=== PATIENT | male | born 1965 | race Caucasian/White ===

== ENCOUNTER 2021-04-09 08:34 | Outpatient (REF) | payer OTHER, SELFPAY ==
--- NOTE | 2021-04-09 09:57 | MHC.AU.ANR ---
Adult Audiological Evaluation Date of Visit: 04/09/21 Reason for Appointment: Audiological evaluation due to concerns for decreased hearing and tinnitus. Mr. Razo notes that over the past few years he's been having to ask people to repeat themselves more often and he has some trouble hearing in groups. He notes that he has had tinnitus for a long time, but feels it has become worse over the past three years. He notes a history of noise exposure related to going to concerts, and feels the tinnitus became constant following a concert he went to about three years ago. Does patient feel they have a hearing loss?: Yes If Yes, Which Ear?: Both Ears When Was Hearing Difficulty First Noticed?: Over the past several years Has hearing been tested previously?: No Hearing Handicap Inventory: HHIE SCORE: 14 Based on HHIE score, patient has: Mild to moderate perceived hearing handicap Ear History: Bothersome Tinnitus/Ringing/Noises in Ears: Both Ears Medical History: Medical History: Tobacco Use Medical History (Other): Knee surgery ~2017 Medication List: Advil PRN Otoscopy: Right Ear: Unremarkable Left Ear: Unremarkable Tympanometry: Tympanometry performed due to: To assess integrity of the middle ear system Right Ear: Reduced Middle Ear Compliance (Type As) Left Ear: Reduced Middle Ear Compliance (Type As) Hearing Evaluation: Transducer(s) Used: Insert Earphones, Bone Conduction Method: Conventional Audiometry Stimuli Used: Pure Tones Right Ear: Description of Hearing: Normal hearing from 250-2000 Hz, sloping to a moderate sensorineural hearing loss from 0161-2014 Hz. Left Ear: Description of Hearing: Normal hearing from 250-1500 Hz, sloping to a mild to moderate sensorineural hearing loss from 0366-6622 Hz. Speech Recognition Threshold (SRT): Method Used: Monitored Live Voice Stimuli Used: Spondee Words Right Ear: 5 dBHL Left Ear: 5 dBHL Word Discrimination: Method: Recorded Lists Word Lists Used: NU-6 Right Ear: 100% at 65 dBHL Left Ear: 92% at 65 dBHL QuickSIN: 2 dB SNR loss when presented binaurally at 65 dBHL, indicating normal [id number] understanding abilities. Recommendations: Audiological re-evaluation in one year. Trial with amplification is recommended. Patient does not feel they are ready for amplification at this time. Hearing protection should be used when around loud noise. Reviewed results with Mr. Razo. Advised that he is a borderline candidate for hearing aid use. Briefly discussed the benefits of hearing aids. Discussed exacerbating factors of tinnitus. Welcomed to return if he would like to discuss hearing aids further. Diagnosis: Primary Diagnosis: H90.3 Bilateral Sensorineural Hearing Loss Secondary Diagnosis: H93.13 Tinnitus, Bilateral Services Performed: Services Performed: Comprehensive Audiological Evaluation (CPT 39351) Tympanometry (CPT 74725) Signature: Provider: Rula Billings, CCC-A
== END 2021-04-09 08:35 | disposition home or self-care (01) ==
LOC: HO.SH 08:34
PROVIDERS: Visit Provider Physician Assistant Medical
DX: H90.3 Sensorineural hearing loss, bilateral (principal); H93.13 Tinnitus, bilateral
CPT/HCPCS: 92557; 92567